=== PATIENT | male | born 1980 | race Two or more races ===

== ENCOUNTER 2022-12-12 23:10 | Emergency (ER) | payer SELFPAY ==
[~2022-12-12] VITALS: Ht 185.4 cm; Wt 101.0 kg
[2022-12-12 23:25] VITALS: BP 131/90
== END 2022-12-13 00:01 | disposition left against medical advice (07) ==
LOC: ER 23:10
DX: R42 Dizziness and giddiness (principal); R07.9 Chest pain, unspecified
CPT/HCPCS: 99283